=== PATIENT | male | born 1965 | race Caucasian/White ===

== ENCOUNTER → 2021-12-14 | Outpatient (CLI) | payer OTHER ==
--- NOTE | 2021-12-14 11:55 | Diagnostic Imaging Report ---
INDICATION: Low back pain. FINDINGS: 3 views. There is bilateral pars defect noted at L5 with grade 2 anterolisthesis of L5 on S1. Remaining lumbar vertebral bodies show mild rotary scoliosis convex to the right at L4. Body height is well-maintained throughout. There is marked narrowing at the L3-L4 disc with sclerotic Modic endplate changes and hypertrophic change. Similar though less severe changes noted at L2-L3. SI joints are symmetrical with mild sclerotic change. IMPRESSION: 1. Rotary scoliosis with rather advanced degenerative disc changes. 2. 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 Dictated by: Dictated on workstation # [id number]
--- NOTE | 2021-12-14 13:26 | Diagnostic Imaging Report ---
Indication: Back pain. FINDINGS: 2 views. Thoracic spine shows good alignment. Body height and disc spaces are well-maintained. Pedicles are intact. No paraspinal masses. IMPRESSION: Normal thoracic spine. Dictated by: Dictated on workstation # [id number]
== END ==
LOC: RAD 10:01
PROVIDERS: ATTEND Family Medicine
DX: M47.816 Spondylosis without myelopathy or radiculopathy, lumbar region (principal); M43.16 Spondylolisthesis, lumbar region; M54.6 Pain in thoracic spine
CPT/HCPCS: 72070; 72100